=== PATIENT | male | born 1990 | race Hispanic/Latino ===

== ENCOUNTER 2024-10-09 15:44 | Emergency (ER) | payer OTHER ==
[~2024-10-09] VITALS: Ht 190.5 cm; Wt 107.6 kg
[2024-10-09] MEDS ORDERED: DOXYCYCLINE HY100 MG PO (16:09)
[2024-10-09] MEDS ORDERED: SEROQUEL300 MG PO (16:10)
[2024-10-09] MEDS ORDERED: REMERON15 MG PO (16:11)
[2024-10-09] MEDS ORDERED: CETIRIZINE HCL10 MG PO (16:12)
[2024-10-09] MEDS ORDERED: BENADRYL25 MG PO (16:12)
[2024-10-09] MEDS ORDERED: ZOLOFT100 MG PO (16:12)
[2024-10-09] MEDS ORDERED: VITAMIN D250 MCG PO (16:13)
[2024-10-09] MEDS ORDERED: ACETAMINOPHEN 500 MG TAB PO ONE (16:30)
[2024-10-09] MEDS ORDERED: IBUPROFEN 600 MG TAB PO ONE (16:30)
[2024-10-09 16:32] VITALS: BP 121/84
== END 2024-10-09 16:33 | disposition other institution, planned readmission (95) ==
LOC: ED 15:44
DX: S00.511A Abrasion of lip, initial encounter (principal); M79.12 Myalgia of auxiliary muscles, head and neck; Y04.8XXA Assault by other bodily force, initial encounter; Z88.8 Allergy status to other drugs, medicaments and biological substances; Z88.5 Allergy status to narcotic agent
CPT/HCPCS: 99284; A9270

== ENCOUNTER 2025-05-13 21:05 | Emergency (ER) | payer OTHER ==
[~2025-05-13] VITALS: Ht 190.5 cm; Wt 108.0 kg
[~2025-05-13 21:05] MED LIST: BENADRYL25 MG PO; CETIRIZINE HCL10 MG PO; DOXYCYCLINE HY100 MG PO; REMERON15 MG PO; SEROQUEL300 MG PO; VITAMIN D250 MCG PO; ZOLOFT100 MG PO
[2025-05-13] MEDS ORDERED: LIDOCAINE/RACEPINEP/TETRACAINE 3 ML SYR TOP ONE (22:45)
[2025-05-13] MEDS ORDERED: DIPHTH,PERTUSS(ACELL),TET VAC 0.5 ML SYRINGE IM ONE (23:45)
== END 2025-05-14 | disposition home or self-care (01) ==
LOC: ED 21:05
DX: S01.111A Laceration without foreign body of right eyelid and periocular area, initial encounter (principal); Y04.8XXA Assault by other bodily force, initial encounter; Z79.899 Other long term (current) drug therapy; Z88.5 Allergy status to narcotic agent; Z88.8 Allergy status to other drugs, medicaments and biological substances
CPT/HCPCS: 12011; 90471; 90715; 99283-25